=== PATIENT | female | born 1990 | race Caucasian/White ===

== ENCOUNTER 2018-11-08 07:08 | Inpatient (IN) | payer MEDICAID ==
[2018-11-08] MEDS ORDERED: BRETHINE SUB-Q PRN (08:33)
[2018-11-08] MEDS ORDERED: LACTATED RINGERS 1,000 ML IV SCH ×2 (09:00→17:00)
[2018-11-08] MEDS ORDERED: PITOCin/NS 20 UNIT/1000ML DRIP 20 UNITS/1,000 ML BAG IV SCH ×3 (09:00→19:00)
[2018-11-08 09:23] LABS: Hematocrit 37.9 % (30.3-42.9); Hemoglobin 12.5 gm/dl (10.1-14.3); Mean Corpuscular HGB Conc 33 % (30-34); Mean Corpuscular Volume 89 fl (79-97); Red Blood Count 4.24 M/mm3 (3.65-5.03); Red Cell Distribution Width 16.4 % (13.2-15.2)
[2018-11-08 09:25] LABS: Platelet Count 96 K/mm3 (140-440)
--- NOTE | 2018-11-08 09:31 | History and Physical Report ---
History of Present Illness Date of examination: 11/08/18 Date of admission: 11/08/18 09:19 Chief complaint: Leaking of water from vagina since 06:30 this morning. History of present illness: 28 year old presents with complaint of leaking fluid from vagina since 06:30 today. Fluid is clear. Patient reports active movement. She reports a small amount of bloody show. Patient reports contractions every 2-3 minutes. Patient received care at [facility]. records are available. LMP 01/26/18. EDC 11/02/18. EGA 40 weeks, 6 days gestation. significant for the following: obesity, gestational thrombocytopenia, elevated 1 hour sugar test (only one abnormal value on 3 hour OGTT), anemia (supplemented with iron). labs are as follows: A+, antibody screen negative, pap smear negative, rubella immune, RPR nonreactive, HIV negative, hepatitis B surface antigen negative, chlamydia negative, gonorrhea negative, GBS negative, quad screen negative, 1 hour sugar test 188, 3 hour OGTT 93/198/130/120. 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 denies: smoking, alcohol abuse, prescription drug abuse, IV drug use - Obstetrical History Expected Date of Delivery: 11/02/18 Actual Gestation: 40 Week(s) 6 Day(s) : 2 Para: 1 Hx # Term Pregnancies: 2 Number of Pregnancies: 0 Spontaneous Abortions: 0 Induced : 0 Number of Living Children: 1 Medications and Allergies Allergies Allergy/AdvReac Type Severity Reaction Status Date / Time No Known Allergies Allergy Verified 11/08/18 09:02 Active Meds: Active Medications Ephedrine Sulfate (Ephedrine Sulfate) 10 mg IV Q2M PRN PRN Reason: Hypotension Fentanyl (Sublimaze) 100 mcg IV Q2H PRN PRN Reason: Labor Pain Lactated Ringer's (Lactated Ringers) 1,000 mls @ 125 mls/hr IV DIRECT MARY Oxytocin/Sodium Chloride (Pitocin/Ns 20 Unit/1000ml Drip) 20 units in 1,000 mls @ 125 mls/hr IV DIRECT MARY Lactated Ringer's (Lactated Ringers) 1,000 mls @ 125 mls/hr IV DIRECT MARY Terbutaline Sulfate (Brethine) 0.25 mg SUB-Q ONCE PRN PRN Reason: Hyperstimulation/Hypertonicity Review of Systems All systems: negative (contractions and leaking of fluid from vagina) - Vital Signs Vital signs: Vital Signs Temp Resp 98.3 F 18 11/08/18 08:52 11/08/18 08:52 Temp Pulse Resp BP Pulse Ox 98.3 F 67 18 134/81 11/08/18 08:52 11/08/18 08:53 11/08/18 08:52 11/08/18 08:53 - Physical Exam Abdomen: Positive: normal appearance, soft. Negative: distention, tenderness, guarding, rigidity Genitourinary (Female): Positive: normal external genitalia, normal perenium. Negative: perineal/vulvar lesions Vagina: Positive: other (large amount of clear fluid seen coming from vagina) Uterus: Positive: enlarged (size=dates) Anus/Rectum: Positive: normal perianal skin Extremities: Positive: normal. Negative: tenderness, edema - Obstetrical FHR: category 1 Uterine Contraction Monitor Mode: Palpation Cervical Dilatation: 3 Cervical Effacement Percentage: 50 station: -4 Uterine Contraction Pattern: Regular Uterine Contraction Intensity: Moderate Results All other labs normal. Assessment and Plan A: at 40 weeks, 6 days gestation. Spontaneous rupture of membranes. Labor. GBS negative. P: Admit. Continuous EFM. Anticipate vaginal .
[2018-11-08] MEDS: LACTATED RINGERS 1,000 ML IV SCH ×2 (09:50→11:08)
[2018-11-08] MEDS: SUBLIMAZE IV PRN ×3 (10:08→14:12)
[2018-11-08] MEDS ORDERED: ZOFRAN IV ONE (11:01)
--- NOTE | 2018-11-08 14:35 | Ultrasound Report ---
PROCEDURE: US OB FOLLOW UP TECHNIQUE: Real-time transabdominal sonography of the uterus, placenta, amniotic fluid, adnexa, and fetus was performed with image documentation. Measurements were obtained to determine age/size. M-mode Doppler was used to document heartbeat. HISTORY: EFW COMPARISONS: None. FINDINGS: MATERNAL: Uterus and cervix: The cervix is closed measures 3.1 cm in length. Adnexa and ovaries: Not visualized. IUP: Single live intrauterine gestation. Position: Cephalic Placental position: Posterior, without previa . Amniotic fluid volume Normal. OSMEL is 8.3 cm. Cardiac activity: Regular rhythm at 145 bpm. BIOMETRY: Biparietal diameter: 9.3 cm, corresponding to a gestational age of 37 weeks, 6 days. Head circumference: 33.5 cm corresponding to a gestational age of 38 weeks, 3 days. Abdominal circumference: 38.03 cm, corresponding to a gestational age of 42 weeks, 0 days. Femur length: 7 cm, corresponding to a gestational age of 35 weeks, 6 days. Estimated Weight: 3917 grams +/- 580 grams. 8 pounds, 10 ounces ounces +/- 20.ounces. 63. Percentile. Mean Gestational Age (composite criteria) based on today's measurements: 38 weeks, 4 days. Estimated Due Date (earliest scan): 11/18/2018. IMPRESSION: Single live intrauterine gestation at 38 weeks, 4 days. Estimated due date: 11/18/2018. Estimated weight: 3917 g. This document is electronically signed by Soo Aguayo MD., November 08 2018 02:33:22 PM ET
--- NOTE | 2018-11-08 15:41 | Event Note ---
Date: 11/08/18 SVE 8/95/-3. EFW 3917 grams by US today. FHR baseline 145 with moderate variability and early decelerations and variable decelerations with rapid return to baseline. Patient is in lateral position and has oxygen per face mask at 10 LPM. Fluid remains clear and patient remains afebrile. Patient has received Fentanyl several times for pain throughout the day; was unable to get epidural due to platelet count 96,000. Stadol has been ordered for patient. Consulted with Dr. Park re: patient, FHR decelerations, EFW, cervical exam and station as well as interventions taken. Will observe closely for continued change and FHR tracing.
--- NOTE | 2018-11-08 15:59 | Event Note ---
Date: 11/08/18 Variable heart rate decelerations have not resolved over several contractions despite position change, oxygen, and fluid bolus. Called Dr. Dalila machado at 15:54 to come and expedite delivery due to FHR tracing. Oxygen, positioning, and fluid bolus continue. Dr. Park en route to hospital to expedite delivery. Discussed this plan with patient and significant other.
[2018-11-08] MEDS ORDERED: STADOL IV ONE (16:00)
--- NOTE | 2018-11-08 16:24 | Anesthesia Consultation ---
Anesthesia Consult and Med Hx Date of service: 11/08/18 - Airway Anesthetic Teeth Evaluation: Good ROM Head & Neck: Adequate Mental/Hyoid Distance: Adequate Mallampati Class: Class III Intubation Access Assessment: Possibly Difficult - Pre-Operative Health Status ASA Pre-Surgery Classification: ASA3 Proposed Anesthetic Plan: General - Pulmonary Hx Asthma: No COPD: No Hx Pneumonia: No - Cardiovascular System Hx Hypertension: No - Central Nervous System Hx Seizures: No Hx Psychiatric Problems: No - Endocrine Hx Renal Disease: No Hx End Stage Renal Disease: No Hx Hypothyroidism: No Hx Hyperthyroidism: No - Hematic Hx Anemia: No Hx Sickle Cell Disease: No - Other Systems Hx Alcohol Use: No Hx Obesity: Yes (Morbid, BMI 42.3) - Additional Comments Anesthesia Medical History Comments: induced thrombocytopenia, macrosomia
[2018-11-08] MEDS ORDERED: TORADOL IV PRN ×3 (16:25→18:25)
--- NOTE | 2018-11-08 16:25 | Anesthesia Day of Surgery ---
Anesthesia Day of Surgery - Day of Surgery Patient Examined: Yes Patient H&P Reviewed: Yes Patient is NPO: Yes
[2018-11-08] MEDS ORDERED: DIPRIVAN 10 MG/ML IV ONE (16:53)
[2018-11-08] MEDS ORDERED: QUELICIN ONE (16:53)
[2018-11-08] MEDS ORDERED: XYLOCAINE MPF 2% ONE (16:53)
[2018-11-08] MEDS ORDERED: BICITRA PO ONE (17:00)
[2018-11-08] MEDS ORDERED: PEPCID IV ONE (17:00)
[2018-11-08] MEDS ORDERED: REGLAN IV ONE (17:00)
[2018-11-08] MEDS ORDERED: ANCEF/STERILE WATER 2 GM/20 ML 2 GM/20 ML SYRINGE IV NR (17:00)
[2018-11-08] MEDS ORDERED: ANCEF/STERILE WATER 2 GM/20 ML IV ONE (17:03)
[2018-11-08] MEDS ORDERED: DILAUDID ONE (17:18)
[2018-11-08] MEDS ORDERED: METHERGINE IM ONE ×2 (17:18→18:00)
[2018-11-08] MEDS ORDERED: HEMABATE IM ONE ×2 (17:36→18:00)
[2018-11-08] MEDS ORDERED: NACL 0.9% 1000 ML 1,000 ML ONE (18:00)
[2018-11-08] MEDS ORDERED: ZOFRAN ONE (18:05)
[2018-11-08] MEDS ORDERED: ZEMURON IV ONE (18:05)
--- NOTE | 2018-11-08 18:08 | Event Note ---
Date: 11/08/18 Progress not-Late entry. Patient is a 28 year old who was admitted at 40 weeks and 6 days gestation in active labor. She progressed to 8 cm/100%/-2. She developed repetitive variable decelerations. Intrauterine rescussitation was done. The decels continued. The decision to deliver via C/section was made. Risks, benefits, and alternatives of the procedure were discussed in detail with the patient which included but not limited to the risk of infection, hemorrhage requiring blood transfusion, injury to the bowel or bladder and blood vessels. The patient expressed understanding, her questions were answered, and she gave informed consent. Patient had thrombocytopenia. General anesthesia was discussed with her since she can't have regional anesthesia. Anesthesia has been notified.
--- NOTE | 2018-11-08 18:10 | Operative Report ---
Operative Report Operative Report: Operative Report: Preoperative diagnosis 1. SIUP at 40 weeks and 6 days gestation in active labor. 2. Nonreassuring tracing. 3. Thrombocytopenia Postoperative diagnosis: 1. SIUP at 40 weeks and 6 days gestation in active labor. 2. Nonreassuring tracing. 3. Thrombocytopenia. Procedure: Primary low-transverse section. Surgeon: Dr. Park Manager Warehouse: none Anesthesia: General IVF: RL 1.8 liters EBL: 1000 cc Urine: 100 cc clear Complications: Intraoperative uterine atony responsive to IV Pitocin, IM methergine, IM Hemabate. Intraoperative findings: 1. A male infant found in a direct OP position, tight nuchal cord 1 with compression, delivered at 5:11 PM, Apgars 5 at 1 minute and 8 at 5 minutes, weight 9 lbs. 1 oz. 2. Normal fallopian tubes and ovaries bilaterally. Procedure details: Risks, benefits, and alternatives of the procedure were discussed in detail with the patient which included but not limited to the risk of infection, hemorrhage requiring blood transfusion, injury to the bowel or bladder and blood vessels. The patient expressed understanding, her questions were answered, and she gave informed consent. The patient was taken to the operating room with an IV fluid infusing Ringers lactate. In the operating room, she was placed in a dorsal supine position with a leftward tilt. Patten catheter in Venodyne boots were placed. The abdomen was washed and she was prepared and draped in usual sterile fashion. General anesthesia was administered. A Pfannenstiel skin incision was made in the lower abdomen about 2 cm above the pubic symphysis using the scalpel. This incision was carried down to the underlying fascia using the Bovie. The fascia was opened bilaterally in a curvilinear fashion using the Bovie. 2 straight Kocker clamps were used to grasp the upper edge of the fascia from which the underlying rectus abdominis muscles was dissected off using the Bovie. A similar procedure was done with the lower edge of the fascia to dissect the underlying rectus abdominis muscle. The muscle was bluntly from the midline by pulling. The parietal peritoneum was grasped with 2 hemostat clamps and entered sharply using Metzenbaum scissors. A quick survey of the anatomy revealed a gravid uterus, normal fallopian tubes and ovaries bilaterally. A bladder flap was created. Vinod'O retractor was placed in the incision for proper visualization. A low transverse incision was made in the lower uterine segment using the scalpel and extended bilaterally in a curvilinear fashion using bandage scissors. There was scant amount of clear amniotic fluid as the membranes have been ruptured during the labor. The infant was found in a direct OP position, the head was delivered atraumatically followed by the delivery of the shoulders and the rest of the body at 5:11 PM. There was tight nuchal cord 1. The cord was clamped 2 and cut and the infant was handed off to the waiting ironworker. The was a male, Apgars were 5 at 1 minute and 8 at 5 minutes, weight was 9 pounds and 1 ounce. Cord blood was collected. The placenta was delivered manually and it was complete with a three-vessel cord. The uterine cavity was cleaned of clots and debris using dry lap sponges. The uterine incision was repaired in a running locked fashion using 0 Vicryl sutures. A second layer of imbrication was placed. There was uterine atony. IV pitocin, IM methergine followed by IM hemabate were given. Good uterine tone was achieved. The gutters were cleaned of clots and debris using dry lap sponges. After confirming adequate hemostasis, the instruments were removed from the abdominal cavity. The rectus muscle was reapproximated in an interrupted fashion using 0 Vicryl sutures. The fascia was closed in a running fashion using 0 Vicryl sutures. The subcutaneous adipose tissue was closed with 2.0 chromic sutures. The skin was closed with trey. Sterile dressing was placed. The counts of laps, needles, sponges, and instruments were correct 2. The patient tolerated the procedure well, she was taken to the recovery room in a stable condition.
[2018-11-08] MEDS ORDERED: TUCKS PAD TP PRN (18:25)
[2018-11-08] MEDS ORDERED: LANSINOH TP PRN (18:25)
[2018-11-08] MEDS ORDERED: MORPHINE IV PRN ×2 (18:25)
[2018-11-08] MEDS ORDERED: SENOKOT PO PRN (18:25)
[2018-11-08] MEDS ORDERED: ZOFRAN IV PRN (18:25)
[2018-11-08] MEDS ORDERED: TYLENOL PO PRN (18:25)
[2018-11-08] MEDS ORDERED: ANUCORT-HC PR PRN (18:25)
[2018-11-08] MEDS ORDERED: PHENERGAN PR PRN (18:25)
[2018-11-08] MEDS ORDERED: MYLICON PO PRN (18:25)
[2018-11-08] MEDS ORDERED: NARCAN 0.4 MG/1 ML IV PRN ×2 (18:25→18:30)
[2018-11-08] MEDS: DILAUDID IV PRN ×2 (18:30→18:45)
[2018-11-08] MEDS ORDERED: SODIUM CHLORIDE FLUSH SYRINGE 10 ML IV SCH (19:00)
[2018-11-08] MEDS: MORPHINE PCA 30MG/30ML IV SCH (19:27)
[2018-11-09] MEDS: MORPHINE PCA 30MG/30ML IV SCH (04:00)
[2018-11-09] MEDS: LACTATED RINGERS 1,000 ML IV SCH (04:17)
[2018-11-09 06:26] LABS: Hematocrit 28.4 % (30.3-42.9); Hemoglobin 9.3 gm/dl (10.1-14.3)
--- NOTE | 2018-11-09 07:06 | Post Anesthesia Evaluation ---
- Post Anesthesia Evaluation Patient Participated: Yes Airway Patent: Yes Stable Respiratory Function: Yes Nausea/Vomiting: No Temp > 96.8F: Yes Pain Manageable: Yes (with COMPUTERIZED TABLE CUTTER) Adequeate Hydration: Yes Anesthesia Complications: No Block Receding Appropriately: Not Applicable Patient on Ventilator: No
--- NOTE | 2018-11-09 10:31 | Progress Note ---
Assessment and Plan - Patient Problems (1) S/P primary low transverse Current Visit: Yes Status: Acute Plan to address problem: POD 1 - stable Continue routine postop orders After nicholas catheter discontinued per protocol, ambulation encouraged as tolerated Abdominal binder ordered Anticipate discharge in 48 hours (2) Anemia due to blood loss, acute Current Visit: Yes Status: Acute Plan to address problem: Asymptomatic Continue iron therapy (3) Thrombocytopenia Current Visit: Yes Status: Acute Plan to address problem: Moderate lochia present Repeat CBC 11/10/18 (4) Oligouria Current Visit: Yes Status: Acute Plan to address problem: Continue IV hydration Encouraged PO hydration as well Discontinue nicholas catheter per protocol Subjective - Subjective Date of service: 11/09/18 Principal diagnosis: POD #1; s/p Primary LTCS Interval history: see H&P, Event Notes and Operative Report Patient reports: appetite normal, pain well controlled (on [employer] pump), other (nicholas catheter still in place due to oliguria), no flatus, no bowel movement [place]: doing well, other (breast and bottle feeding) Objective - Vital Signs Latest vital signs: Vital Signs Temp Pulse Resp BP BP Pulse Ox 11/09/18 08:25 97.3 F L 76 16 105/57 11/09/18 05:26 97.3 F L 88 18 113/56 96 11/08/18 23:31 98.7 F 75 20 117/54 96 11/08/18 20:17 98.7 F 69 20 117/55 97 11/08/18 19:20 98.4 F 62 15 129/55 95 11/08/18 19:05 61 13 131/71 95 11/08/18 18:50 62 14 115/52 94 11/08/18 18:35 64 15 128/51 96 11/08/18 18:30 61 15 117/56 96 11/08/18 18:25 74 14 118/49 97 11/08/18 18:20 98.0 F 18 112/45 96 11/08/18 15:43 61 131/71 11/08/18 14:56 56 L 151/75 11/08/18 14:27 56 L 122/65 11/08/18 14:23 70 178/79 11/08/18 14:12 67 182/72 11/08/18 14:03 52 L 105/50 11/08/18 13:58 48 L 109/47 11/08/18 13:41 48 L 113/57 11/08/18 13:28 46 L 124/57 11/08/18 13:14 68 105/62 11/08/18 13:11 51 L 96/54 11/08/18 12:57 62 129/60 11/08/18 12:41 71 151/67 11/08/18 12:26 50 L 113/57 11/08/18 12:12 50 L 121/58 11/08/18 11:56 52 L 132/77 11/08/18 11:42 57 L 130/59 11/08/18 11:26 57 L 133/77 11/08/18 11:11 49 L 146/78 11/08/18 10:57 50 L 133/73 11/08/18 10:42 55 L 137/67 11/08/18 10:27 55 L 144/74 Intake and Output 11/08/18 11/09/18 11/09/18 23:59 07:59 15:59 Intake Total 3540 240 420 Output Total 250 200 Balance 3290 40 420 Intake: IV 3300 Lactated Ringers 1,000 ml 1000 @ 125 mls/hr IV DIRECT MARY Rx#:[id number] Oral 240 420 Intake, Free Water 240 Output: Urine 250 200 Indwelling Catheter 200 Other: Total, Intake Amount 240 420 Total, Output Amount 200 - Exam Cardiovascular: Present: Regular rate Lungs: Present: Clear to auscultation Abdomen: Present: normal appearance, soft Vulva: both: normal Uterus: Present: normal, firm, fundal height at umbilicus Extremities: Present: normal Incision: Present: normal, dry, intact, dressed Comments: moderate lochia with movements - Labs Labs: Abnormal lab results 11/09/18 Range/Units 04:50 Hgb 9.3 L D (10.1-14.3) gm/dl Hct 28.4 L D (30.3-42.9) %
[2018-11-09] MEDS ORDERED: PERCOCET 5/325 PO PRN (17:41)
[2018-11-09] MEDS: PERCOCET 5/325 PO PRN (18:14)
[2018-11-09] MEDS: IBUPROFEN PO PRN (23:46)
[2018-11-09] MEDS: FEOSOL PO SCH (23:46)
[2018-11-09] MEDS: MILK OF MAGNESIA PO PRN (23:46)
[2018-11-09] MEDS: PRENATAL VITAMIN PO SCH (23:46)
[2018-11-10 06:25] LABS: Hematocrit 27.6 % (30.3-42.9); Hemoglobin 9.3 gm/dl (10.1-14.3); Mean Corpuscular HGB Conc 34 % (30-34); Mean Corpuscular Volume 91 fl (79-97); Red Blood Count 3.04 M/mm3 (3.65-5.03); Red Cell Distribution Width 17.1 % (13.2-15.2)
[2018-11-10 06:47] LABS: Platelet Count 89 K/mm3 (140-440)
--- NOTE | 2018-11-10 09:43 | Progress Note ---
Assessment and Plan - Patient Problems (1) Anemia due to blood loss, acute Current Visit: Yes Status: Acute Plan to address problem: Continue daily iron supplementation as ordered Asymptomatic currently (2) S/P primary low transverse Current Visit: Yes Status: Acute Plan to address problem: Keep incision dry and intact F/U in 1 week at office for incision check F/U in 6 weeks for routine PPV D/C home tomorrow (3) Thrombocytopenia Current Visit: Yes Status: Acute Plan to address problem: Continue iron supplementation Maintain good po intake Repeat CBC on 11/11/18 Subjective - Subjective Date of service: 11/10/18 (8895) Principal diagnosis: POD #1; s/p Primary LTCS Patient reports: appetite normal, voiding normally, pain well controlled (with Motrin), flatus, ambulating normally, no bowel movement : doing well, bottle feeding (and breast feeding) Objective - Vital Signs Latest vital signs: Vital Signs Temp Pulse Resp BP BP Pulse Ox 11/10/18 08:10 98.8 F 71 20 103/47 97 11/10/18 00:46 18 11/09/18 23:46 18 11/09/18 23:26 98.2 F 85 20 112/62 98 11/09/18 19:14 18 11/09/18 16:10 98.7 F 90 18 100/50 11/09/18 15:30 20 11/09/18 12:48 98.7 F 77 18 106/60 11/09/18 10:00 20 Intake and Output 11/09/18 11/10/18 11/10/18 23:59 07:59 15:59 Intake Total 800 120 Output Total 1400 Balance -600 120 Intake: Oral 680 Intake, Free Water 120 120 Output: Urine 1400 Indwelling Catheter 900 Void 500 Other: Total, Intake Amount 320 Total, Output Amount 500 # Voids Void 1 1 - Exam Breasts: Present: Cardiovascular: Present: Regular rate Lungs: Present: Normal air movement Abdomen: Present: normal bowel sounds Uterus: Present: firm, fundal height below umbilicus (U-1) Extremities: Present: normal Deep Tendon Reflex Grade: Normal +2 Incision: Present: dry, intact (trey intact, no drainage or signs of infection noted) - Labs Labs: Abnormal lab results 11/10/18 Range/Units 06:06 RBC 3.04 L (3.65-5.03) M/mm3 Hgb 9.3 L (10.1-14.3) gm/dl Hct 27.6 L (30.3-42.9) % RDW 17.1 H (13.2-15.2) % Plt Count 89 L (140-440) K/mm3
--- NOTE | 2018-11-10 09:53 | Discharge Summary ---
Providers - Providers Date of Admission: 11/08/18 09:19 Date of discharge: 11/11/18 Attending physician: RUBEN COSME MD Primary care physician: RUBEN COSME MD Hospitalization Reason for admission: rupture of membranes Delivery: (primary) Procedure: section, repeat low transverse Episiotomy: none Laceration: none Incision: dry, intact (no signs of infection noted) Other procedures: none complications: none Discharge diagnosis: other (Primary C/S; Anemia; Gestational thrombocytopenia) baby: male Condition at discharge: Stable Disposition: DC- TO HOME OR SELFCARE - Discharge Diagnoses (1) Anemia due to blood loss, acute Status: Acute (2) S/P primary low transverse Status: Acute (3) Thrombocytopenia Status: Acute Plan - Discharge Medications Prescriptions: Ibuprofen [Motrin] 800 mg PO Q8HR PRN #30 tablet PRN Reason: Pain, Moderate (4-6) oxyCODONE /ACETAMINOPHEN [Percocet 5/325] 1 tab PO Q4HR #20 tab - Provider Discharge Summary Activity: routine, no sex for 6 weeks, no heavy lifting 4 weeks, no strenuous exercise Diet: routine Instructions: routine Additional instructions: [] Smoking cessation referral if applicable(refer to patient education folder for contact #) [] Refer to [facility] Booklet Call your doctor immediately for: * Fever > 100.5 * Heavy vaginal bleeding ( >1 pad per hour) * Severe persistent headache * Shortness of breath * Reddened, hot, painful area to leg or breast * Drainage or odor from incision. * Keep incision clean and dry at all times and follow doctor's instructions regarding bathing/showering * Continue daily iron supplementation as directed - Follow up plan Follow up: RUBEN COSME MD [Primary Care Provider] - 7 Days Forms: [facility] Discharge Summary
[2018-11-10] MEDS: PRENATAL VITAMIN PO SCH (10:56)
[2018-11-10] MEDS: FEOSOL PO SCH (10:56)
[2018-11-10] MEDS: PERCOCET 5/325 PO PRN (11:01)
[2018-11-10] MEDS: IBUPROFEN PO PRN (23:31)
[2018-11-10] MEDS: MILK OF MAGNESIA PO PRN (23:31)
[2018-11-11 06:18] LABS: Basophils % (Auto) 0.3 % (0.0-1.8); Eosinophils # (Auto) 0.1 K/mm3 (0.0-0.4); Eosinophils % (Auto) 1.1 % (0.0-4.3); Hematocrit 23.5 % (30.3-42.9); Hemoglobin 7.8 gm/dl (10.1-14.3); Lymphocytes # (Auto) 1.4 K/mm3 (1.2-5.4); Lymphocytes % (Auto) 22.8 % (13.4-35.0); Mean Corpuscular HGB Conc 33 % (30-34); Mean Corpuscular Volume 91 fl (79-97); Monocytes # (Auto) 0.3 K/mm3 (0.0-0.8); Monocytes % (Auto) 5.5 % (0.0-7.3); Red Blood Count 2.59 M/mm3 (3.65-5.03); Red Cell Distribution Width 17.4 % (13.2-15.2)
[2018-11-11 06:40] LABS: Platelet Count 84 K/mm3 (140-440)
[2018-11-11] MEDS: FEOSOL PO SCH (14:10)
[2018-11-11 14:14] VITALS: BP 130/60
== END 2018-11-11 15:30 | disposition home or self-care (01) | DRG 765 ==
LOC: TRG 07:08 → LD 09:19 → OB 20:25
PROVIDERS: ADMIT Obstetrics & Gynecology; ATTEND Obstetrics & Gynecology
PROC: 10D00Z1 Extraction of Products of Conception, Low, Open Approach (ICD-10-PCS; principal; 2018-11-08)
DX: O76 Abnormality in fetal heart rate and rhythm complicating labor and delivery (principal); O99.12 Other diseases of the blood and blood-forming organs and certain disorders involving the immune mechanism complicating childbirth; D62 Acute posthemorrhagic anemia; O41.03X0 Oligohydramnios, third trimester, not applicable or unspecified; O99.214 Obesity complicating childbirth; E66.9 Obesity, unspecified; D69.6 Thrombocytopenia, unspecified; O69.1XX0 Labor and delivery complicated by cord around neck, with compression, not applicable or unspecified; Z3A.40 40 weeks gestation of pregnancy; Z37.0 Single live birth; Z83.3 Family history of diabetes mellitus; O90.81 Anemia of the puerperium
CPT/HCPCS: 36415; 76816; 85014; 85018; 85025; 85027; 86592; 86850; 86900; 86901; 88307; G0378; A6250; J0330; J0595; J0690; J1170; J1885; J2210; J2270; J2405; J2590; J2704; J2765; J3010; J7030; J7120

== ENCOUNTER 2020-01-30 19:45 | Emergency (ER) | payer SELFPAY ==
[2020-01-30 20:34] LABS: Basophils # (Auto) 0.1 K/mm3 (0.0-0.1); Basophils % (Auto) 0.6 % (0.0-1.8); Eosinophils % (Auto) 0.5 % (0.0-4.3); Hematocrit 35.1 % (30.3-42.9); Hemoglobin 10.9 gm/dl (10.1-14.3); Lymphocytes # (Auto) 1.9 K/mm3 (1.2-5.4); Lymphocytes % (Auto) 19.8 % (13.4-35.0); Mean Corpuscular HGB Conc 31 % (30-34); Mean Corpuscular Volume 73 fl (79-97); Monocytes # (Auto) 0.4 K/mm3 (0.0-0.8); Monocytes % (Auto) 3.9 % (0.0-7.3); Platelet Count 178 K/mm3 (140-440); Red Blood Count 4.77 M/mm3 (3.65-5.03); Red Cell Distribution Width 18.1 % (13.2-15.2)
[2020-01-30 20:50] LABS: Alanine Aminotransferase 11 units/L (7-56); Albumin 4.6 g/dL (3.9-5); BUN/Creatinine Ratio 15; Blood Urea Nitrogen 9 mg/dL (7-17); Calcium 9.1 mg/dL (8.4-10.2); Hemolysis Index 13
[2020-01-30 20:55] LABS: Bacteria,Urine 1+ /HPF (Negative); Bilirubin,Urine NEG (Negative); Blood,Urine NEG (Negative); Color,Urine Yellow (Yellow); Mucus,Urine FEW /HPF; Protein,Urine <15 mg/dL mg/dL (Negative); Urobilinogen,Urine < 2.0 mg/dL (<2.0)
[2020-01-30] MEDS ORDERED: HYDROmorphone 1 MG/1 ML INJ IV ONE (22:48)
[2020-01-30] MEDS ORDERED: DICYCLOMINE 20 MG/2 ML INJ IM ONE (22:48)
[2020-01-30] MEDS ORDERED: ONDANSETRON 4 MG/2 ML INJ IV ONE (22:48)
--- NOTE | 2020-01-30 22:55 | Emergency Department Report ---
HPI - General Chief Complaint: Abdominal Pain Time Seen by Provider: 01/30/20 22:34 - HPI HPI: Room 38 The patient is a 29-year-old female present with a chief complaint of abdominal pain. The patient states today at 12: 30 she developed right upper quadrant abdominal pain consistent with her previous bout of symptomatic cholelithiasis. Patient states she then developed nausea and vomiting. The patient states her Levsin did not help. Patient denies fever or diarrhea. Patient gives her pain a score of 10/10 ED Past Medical Hx - Past Medical History Previous Medical History?: Yes Additional medical history: Gallstones. H. Pylori - Surgical History Past Surgical History?: Yes Additional Surgical History: x1 - Family History Family history: no significant - Social History Smoking Status: Never Smoker Substance Use Type: None (Denies illicit drug use) - Medications Home Medications: Home Medications Medication Instructions Recorded Confirmed Last Taken Type Ibuprofen [Motrin] 800 mg PO Q8HR PRN #30 tablet 11/09/18 Unknown Rx oxyCODONE /ACETAMINOPHEN [Percocet 1 tab PO Q4HR #20 tab 11/09/18 Unknown Rx 5/325] Dicyclomine [Bentyl] 20 mg PO QID #20 tablet 01/31/20 Unknown Rx HYDROcodone/APAP 5-325 [[place] 1 - 2 each PO Q6HR PRN #14 tablet 01/31/20 Unknown Rx 5/325] Promethazine [Phenergan] 25 mg PO Q6HR PRN #20 tab 01/31/20 Unknown Rx Promethazine [Phenergan] 25 mg RI Q6HR PRN #5 supp.rect 01/31/20 Unknown Rx ED Review of Systems ROS: Stated complaint: ABD PAIN Other details as noted in HPI Constitutional: denies: fever Respiratory: no symptoms reported Endocrine: no symptoms reported Gastrointestinal: abdominal pain, nausea, vomiting. denies: diarrhea Physical Exam - Physical Exam Physical Exam: GENERAL: The patient is well-developed well-nourished female lying on stretcher appearing to be in moderate discomfort. [] HEENT: Normocephalic. Atraumatic. Extraocular motions are intact. Patient has moist mucous membranes. NECK: Supple. Trachea midline CHEST/LUNGS: Clear to auscultation. There is no respiratory distress noted. HEART/CARDIOVASCULAR: Regular. There is no tachycardia. There is no gallop rub or murmur. ABDOMEN: Abdomen is soft, with tenderness greatest in the right upper quadrant and midepigastric region. No tenderness to the lower abdomen. Patient has normal bowel sounds. There is no abdominal distention. SKIN: There is no rash. There is no edema. There is no diaphoresis. NEURO: The patient is awake, alert, and oriented. The patient is cooperative. The patient has normal speech MUSCULOSKELETAL: There is no evidence of acute injury. ED Course - Reevaluation(s) Reevaluation #1: 01/31/20 01:27 Patient improved after medication. Strong warnings given ED Medical Decision Making - Lab Data Result diagrams: 01/30/20 20:13 01/30/20 20:13 Laboratory Tests 01/30/20 01/30/20 01/30/20 20:13 20:13 20:13 WBC 9.4 RBC 4.77 Hgb 10.9 Hct 35.1 MCV 73 L MCH 23 L MCHC 31 RDW 18.1 H Plt Count 178 Lymph % (Auto) 19.8 [place] % (Auto) 3.9 Eos % (Auto) 0.5 Baso % (Auto) 0.6 Lymph # 1.9 [place] # 0.4 Eos # 0.0 Baso # 0.1 Seg Neutrophils % 75.2 H Seg Neutrophils # 7.1 Sodium 138 Potassium 3.9 Chloride 103.1 Carbon Dioxide 21 L Anion Gap 18 BUN 9 Creatinine 0.6 L Estimated GFR > 60 BUN/Creatinine Ratio 15 Glucose 146 H Calcium 9.1 Total Bilirubin 0.20 AST 10 ALT 11 Alkaline Phosphatase 60 Total Protein 8.1 Albumin 4.6 Albumin/Globulin Ratio 1.3 Lipase 38 HCG, Qual Negative Urine Color Urine Turbidity Urine pH Ur Specific [place] Urine Protein Urine Glucose (UA) Urine Ketones Urine Blood Urine Nitrite Urine Bilirubin Urine Urobilinogen Ur Leukocyte Esterase Urine WBC (Auto) Urine RBC (Auto) U Epithel Cells (Auto) Urine Bacteria (Auto) Urine Mucus 01/30/20 20:35 WBC RBC Hgb Hct MCV MCH MCHC RDW Plt Count Lymph % (Auto) [place] % (Auto) Eos % (Auto) Baso % (Auto) Lymph # [place] # Eos # Baso # Seg Neutrophils % Seg Neutrophils # Sodium Potassium Chloride Carbon Dioxide Anion Gap BUN Creatinine Estimated GFR BUN/Creatinine Ratio Glucose Calcium Total Bilirubin AST ALT Alkaline Phosphatase Total Protein Albumin Albumin/Globulin Ratio Lipase HCG, Qual Urine Color Yellow Urine Turbidity Clear Urine pH 6.0 Ur Specific [place] 1.020 Urine Protein <15 mg/dl Urine Glucose (UA) Neg Urine Ketones Neg Urine Blood Neg Urine Nitrite Neg Urine Bilirubin Neg Urine Urobilinogen < 2.0 Ur Leukocyte Esterase Sm Urine WBC (Auto) 4.0 Urine RBC (Auto) 1.0 U Epithel Cells (Auto) 5.0 Urine Bacteria (Auto) 1+ Urine Mucus Few - Radiology Data Radiology results: report reviewed (Right upper quadrant ultrasound), image reviewed (Right upper quadrant ultrasound) [facility] [address] [place] [address] Ultrasound Report Signed Patient: AI KEITH MR#: [id number] : 1990 Acct:[id number] Age/Sex: 29 / F ADM Date: 01/30/20 Loc: ED Attending Dr: Ordering Physician: MIRI VELOZ MD Date of Service: 01/30/20 Procedure(s): US abdomen limited Accession Number(s): [id number] cc: MIRI VELOZ MD ULTRASOUND ABDOMEN, LIMITED (RIGHT UPPER QUADRANT) INDICATION: Right upper quadrant pain. COMPARISON: None available. FINDINGS: Pancreas: Visualized portion shows no significant abnormality. Liver: 19 cm craniocaudal with some increased echogenicity.. Gallbladder: Cholelithiasis. Bile ducts: Normal. Common Bile Duct measures 4 mm. Free fluid: None. Additional Findings: None. IMPRESSION: Fatty enlarged liver. Cholelithiasis. No significant gallbladder wall thickening appreciated. Signer Name: Axel Michael MD Signed: 01/31/2020 12:51 AM Workstation Name: [id number] Transcribed By: Dictated By: Axel Michael MD Electronically Authenticated By: Axel Michael MD Signed Date/Time: 01/31/2050 DD/ TD/TT: - Differential Diagnosis Symptomatic cholelithiasis, cholecystitis, peptic ulcer disease Critical care attestation.: If time is entered above; I have spent that time in minutes in the direct care of this critically ill patient, excluding procedure time. ED Disposition Clinical Impression: Symptomatic cholelithiasis, Acute abdominal pain, Nausea & vomiting Disposition: - TO HOME OR SELFCARE Is pt being admited?: No Does the pt Need Aspirin: No Condition: Stable Instructions: Abdominal Pain (ED), Biliary Colic (ED) Additional Instructions: Return to the emergency department should you develop worsening symptoms, inability to tolerate food or liquids, high fever or any other concerns Prescriptions: Dicyclomine [Bentyl] 20 mg PO QID #20 tablet HYDROcodone/APAP 5-325 [[place] 5/325] 1 - 2 each PO Q6HR PRN #14 tablet PRN Reason: Pain Promethazine [Phenergan] 25 mg PO Q6HR PRN #20 tab PRN Reason: Nausea Promethazine [Phenergan] 25 mg RI Q6HR PRN #5 supp.rect PRN Reason: Vomiting Referrals: RICO FREIRE DO [Staff Physician] - 3-5 Days (Dr. Freire is a general surgeon. Please follow-up with her for further evaluation of your gallbladder) Time of Disposition: 01:29
[2020-01-30] MEDS ORDERED: HYDROmorphone 1 MG/1 ML INJ IM ONE (23:14)
[2020-01-30] MEDS ORDERED: ONDANSETRON 4 MG/2 ML INJ IM ONE (23:14)
[2020-01-31] MEDS ORDERED: fentaNYL 100 MCG/2 ML INJ ONE (00:48)
[2020-01-31] MEDS ORDERED: fentaNYL 100 MCG/2 ML INJ IM ONE (00:48)
--- NOTE | 2020-01-31 00:56 | Ultrasound Report ---
ULTRASOUND ABDOMEN, LIMITED (RIGHT UPPER QUADRANT) INDICATION: Right upper quadrant pain. COMPARISON: None available. FINDINGS: Pancreas: Visualized portion shows no significant abnormality. Liver: 19 cm craniocaudal with some increased echogenicity.. Gallbladder: Cholelithiasis. Bile ducts: Normal. Common Bile Duct measures 4 mm. Free fluid: None. Additional Findings: None. IMPRESSION: Fatty enlarged liver. Cholelithiasis. No significant gallbladder wall thickening appreciated. Signer Name: Axel Michael MD Signed: 01/31/2020 12:51 AM Workstation Name: [id number]
[2020-01-31 01:31] VITALS: BP 120/70
== END 2020-01-31 01:37 | disposition home or self-care (01) ==
LOC: ED 19:45
DX: K80.80 Other cholelithiasis without obstruction (principal); Z98.890 Other specified postprocedural states; Z79.899 Other long term (current) drug therapy
CPT/HCPCS: 36415; 76705; 80053; 81001; 83690; 84703; 85025; 96372; 99284; J0500; J1170; J2405; J3010